=== PATIENT | female | born 1975 | race Caucasian/White ===

== ENCOUNTER 2021-01-06 07:15 | Emergency (ER) | payer BC ==
[~2021-01-06] VITALS: Ht 165.1 cm; Wt 98.4 kg
[2021-01-06 07:49] LABS: BASO % 0.2 % (0.0-1.0); EOS % 0.1 % (1.0-4.0); HEMATOCRIT 43.1 % (37.0-47.0); LYMPH # 0.9 10*3/uL (1.3-4.4); LYMPH % 4.3 % (27.0-41.0); MEAN CELL VOLUME 86.7 fl (81.0-99.0); MEAN CORPUSCULAR HGB 29.8 pg (27.0-31.0); MEAN CORPUSCULAR HGB CONC 34.3 g/dl (33.0-37.0); MEAN PLATELET VOLUME 9.4 fl (9.6-12.3); MONO # 1.3 10*3/uL (0.1-1.0); MONO % 6.4 % (3.0-9.0); NEUT # 17.6 10*3/uL (2.3-7.9); NEUT % 88.5 % (47.0-73.0); PLATELET COUNT AUTOMATED 312 10*3/uL (130-400); RED BLOOD COUNT 4.97 10*6/uL (4.10-5.10); RED CELL DISTRI WIDTH 12.6 % (0-14.5); WHITE BLOOD COUNT 19.9 10*3/uL (4.8-10.8)
[2021-01-06 07:56] LABS: BILIRUBIN Negative (Negative); BLOOD 3+ (Negative); CLARITY Turbid (Clear); COLOR Dark Yellow (Yellow); GLUCOSE Negative (Negative); KETONE 3+ (Negative); LEUKO ESTERASE 3+ (Negative); NITRITE Positive (Negative)
[2021-01-06 08:09] LABS: ALBUMIN 3.3 gm/dl (3.1-4.5); ALKALINE PHOSPHATASE 79 U/L (45-117); BUN 10 mg/dl (7-24); CHLORIDE 106 mmol/L (98-107); CREATININE 0.84 mg/dL (0.55-1.02); POTASSIUM 3.5 mmol/L (3.5-5.1); SGOT/AST 15 IU/L (3-35); SGPT/ALT 31 U/L (12-78); SODIUM 138 mmol/L (136-145)
[2021-01-06 08:14] LABS: BACTERIA 3+; WBC TNTC wbc/hpf (0-5)
[2021-01-06] MEDS ORDERED: LEVOFLOXACIN750 M2 PO (08:45)
== END 2021-01-06 09:47 | disposition home or self-care (01) ==
LOC: ED 07:15
PROVIDERS: Student in an Organized Health Care Education/Training Program
DX: N12 Tubulo-interstitial nephritis, not specified as acute or chronic (principal); N39.0 Urinary tract infection, site not specified; Z87.442 Personal history of urinary calculi; Z88.1 Allergy status to other antibiotic agents